=== PATIENT | female | born 1980 | race Caucasian/White ===

== ENCOUNTER 2023-09-01 20:18 | Emergency (ER) | payer MEDICAID ==
[~2023-09-01] VITALS: Ht 167.6 cm; Wt 101.0 kg
[2023-09-01 20:19] VITALS: TEMP 98.4
[2023-09-01] MEDS ORDERED: NO HOME MEDS (20:24)
[2023-09-01] MEDS ORDERED: EST1T PO (20:24)
[2023-09-01] MEDS ORDERED: SERT-433 PO (20:25)
[2023-09-01] MEDS ORDERED: ketorolac trometh. 30mg/ml inj. IV ONE (23:00)
[2023-09-01] MEDS: proCHLORperazine 10 MG/2 ml inj IV ONE (23:22)
[2023-09-01] MEDS: normal saline 1000ml 1,000 ML IV ONE (23:22)
[2023-09-01] MEDS: acetaminophen 1,000mg/100ml IV 100 ML IV ONE (23:22)
[2023-09-01] MEDS: ketorolac tromethamine 15mg/ml inj. IV ONE (23:23)
[2023-09-02 00:05] VITALS: BP 113/66; PULSE 78; RESP 13; O2SAT 96
== END 2023-09-02 00:51 | disposition home or self-care (01) ==
LOC: ER 20:19
DX: G43.909 Migraine, unspecified, not intractable, without status migrainosus (principal); Z79.899 Other long term (current) drug therapy
CPT/HCPCS: 70450; 96374; 96375; 99285; J0131; J0780; J1885; J7030

== ENCOUNTER 2024-05-05 14:09 | Emergency (ER) | payer MEDICAID ==
[~2024-05-05] VITALS: Ht 167.6 cm; Wt 103.7 kg
[~2024-05-05 14:09] MED LIST: EST1T PO; SERT-433 PO
[2024-05-05 14:20] VITALS: TEMP 97.3
[2024-05-05 15:50] VITALS: BP 122/78; PULSE 75; RESP 18; O2SAT 97
[2024-05-05] MEDS: lisinopril 10 MG tablet PO ONE (16:03)
[2024-05-05 16:50] LABS: BASOPHILS % (AUTO) 0.4 % (0-1); EOSINOPHILS # (AUTO) 0.1 X10'3 (0-0.9); EOSINOPHILS % (AUTO) 1.2 % (0-6); HEMATOCRIT 41.1 % (35.0-45.0); HEMOGLOBIN 13.7 g/dl (12.0-16.0); LYMPHOCYTES # (AUTO) 2.2 X10'3 (1.1-4.8); LYMPHOCYTES % (AUTO) 28.7 % (21-51); MEAN CORPUSCULAR HEMOGLOBIN 28.5 PG (27.0-31.0); MEAN CORPUSCULAR HGB CONC 33.3 g/dL (33.0-36.5); MEAN CORPUSCULAR VOLUME 85.8 FL (78-98); MONOCYTES # (AUTO) 0.5 X10'3 (0-0.9); MONOCYTES % (AUTO) 6.2 % (2-12); NEUTROPHILS # (AUTO) 4.9 X10'3 (1.8-7.7); NEUTROPHILS % (AUTO) 63.5 % (42-75); PLATELET COUNT 337 X10'3 (140-440); RED BLOOD COUNT 4.79 X10'6 (4.20-5.60); RED CELL DISTRIBUTION WIDTH 14.1 % (11.5-14.5); WHITE BLOOD COUNT 7.6 X10'3 (4.5-11.0)
[2024-05-05 17:06] LABS: ALANINE AMINOTRANSFERASE 20 U/L (12-78); ALBUMIN 3.9 G/DL (3.4-5.0); ALKALINE PHOSPHATASE 61 IU/L (46-116); ANION GAP 6 (8-16); ASPARTATE AMINO TRANSFERASE 16 U/L (10-37); BILIRUBIN,TOTAL 0.3 MG/DL (0.1-1.0); BLOOD UREA NITROGEN 19 MG/DL (7-18); CALCIUM 9.1 MG/DL (8.5-10.1); CHLORIDE 100 MMOL/L (99-107); CREATININE 0.76 MG/DL (0.40-0.90); GLUCOSE 80 MG/DL (70-104); POTASSIUM 3.5 MMOL/L (3.5-5.1); SODIUM 135 MMOL/L (135-145); TOTAL CARBON DIOXIDE 29.3 MMOL/L (24-32); TOTAL PROTEIN 7.9 G/DL (6.4-8.2); eCRCL 87 ML/MIN; eGFR 82 ML/MIN
== END 2024-05-05 17:23 | disposition home or self-care (01) ==
LOC: ER 14:10
DX: G43.909 Migraine, unspecified, not intractable, without status migrainosus (principal); I10 Essential (primary) hypertension
CPT/HCPCS: 36415; 70450; 80053; 85025; 93005; 99284